=== PATIENT | male | born 1985 | race Caucasian/White ===

== ENCOUNTER 2016-11-26 17:07 | Inpatient (IN) | payer SELFPAY ==
[~2016-11-26] VITALS: Ht 182.9 cm; Wt 127.0 kg
[2016-11-26] MEDS ORDERED: MORPHINE SULFATE 4 MG/ML CPJ (NOT FOR IM USE) IV STA ×2 (20:13→21:55)
[2016-11-26] MEDS ORDERED: ONDANSETRON HCL 4MG/2ML VIAL IV STA ×2 (20:13→21:55)
[2016-11-26] MEDS ORDERED: SODIUM CHLORIDE 0.9% 1,000 ML IV ONE ×2 (20:13→21:55)
[2016-11-26 21:03] LABS: CHLORIDE 102 mEq/L (98-107)
[2016-11-26 21:08] LABS: CARBON DIOXIDE 24 mEq/L (21-32)
[2016-11-26 21:24] LABS: HEMATOCRIT. 42.4 % (42.0-52.0); HEMOGLOBIN. 14.1 g/dL (14.0-18.0); MEAN CORPUSCULAR HEMOGLOBIN 28.3 pg (28.0-32.0); MEAN CORPUSCULAR VOLUME 85.2 fL (80.0-94.0); PLATELET 261 x1000/uL (130-400); RED BLOOD CELL COUNT 4.98 mill/uL (4.7-6.1); RED CELL DISTRIBUTION WIDTH 13.2 % (11.6-14.6)
[2016-11-26 21:27] LABS: PROTHROMBIN TIME 10.7 sec
[2016-11-26 21:50] LABS: CLARITY URINE CLOUDY (CLEAR); COLOR URINE YELLOW (YELLOW); GLUCOSE URINE NEGATIVE (NEGATIVE); KETONES URINE NEGATIVE (NEGATIVE); LEUKOCYTE ESTERASE URINE NEGATIVE (NEGATIVE); NITRITE URINE NEGATIVE (NEGATIVE); OCCULT BLOOD URINE NEGATIVE (NEGATIVE); PROTEIN URINE TRACE (NEGATIVE); SPECIFIC GRAVITY URINE 1.035 (1.005-1.030); UROBILINOGEN URINE 0.2 E.U./dL (0.2-1.0)
[2016-11-26] MEDS ORDERED: KETOROLAC 30MG/ML VIAL IV STA (21:55)
[2016-11-26 22:15] LABS: PLATELET ESTIMATE NORMAL
[2016-11-27 00:03] LABS: BASOPHILS % 0.3 % (0.0-2.0); EOSINOPHILS % 1.5 % (0.0-5.0); HEMATOCRIT. 38.9 % (42.0-52.0); LYMPHOCYTES % 11.9 % (20.0-50.0); MEAN CORPUSCULAR HEMOGLOBIN 28.3 pg (28.0-32.0); MEAN CORPUSCULAR VOLUME 84.6 fL (80.0-94.0); MEAN PLATELET VOLUME 7.7 fl (7.4-10.4); MONOCYTES % 6.4 % (2.0-8.0); NEUTROPHILS % 79.9 % (40.0-76.0); PLATELET 252 x1000/uL (130-400); RED CELL DISTRIBUTION WIDTH 13.3 % (11.6-14.6)
[2016-11-27] MEDS ORDERED: PIPERACILLIN/TAZOBACTAM 3.375GM/50ML PREMIX IV ONE (01:00)
[2016-11-27] MEDS ORDERED: PIPERACILLIN/TAZ 3.375G PREMIX 50 ML IV NR (01:15)
[2016-11-27] MEDS ORDERED: SODIUM CHLORIDE 0.9% 1,000 ML IV SCH (01:41)
[2016-11-27] MEDS ORDERED: ONDANSETRON HCL 4MG/2ML VIAL IV PRN ×3 (01:45→23:00)
[2016-11-27] MEDS ORDERED: LEVOFLOXACIN 500MG PREMIX 100 ML IV SCH ×2 (01:45→17:00)
[2016-11-27] MEDS ORDERED: ACETAMINOPHEN 325MG TABLET PO PRN ×3 (01:45→23:00)
[2016-11-27] MEDS ORDERED: ENOXAPARIN 40MG/0.4ML SYR SUBCUT SCH (01:45)
[2016-11-27] MEDS ORDERED: LORAZEPAM 2MG/ML CPJ IV PRN ×2 (01:45→23:00)
[2016-11-27] MEDS ORDERED: HYDROMORPHONE HCL/PF 2MG/ML CPJ IV PRN ×3 (11:00→23:00)
[2016-11-27] MEDS ORDERED: DOCUSATE SODIUM 100MG CAPSULE PO PRN ×2 (11:30→23:00)
[2016-11-27] MEDS ORDERED: MAGNESIUM/ALUMINUM HYDROXIDE/SIMETHICONE 30ML UDC PO PRN ×2 (11:30→23:00)
[2016-11-27] MEDS ORDERED: DIPHENHYDRAMINE 50MG/ML VIAL IV PRN ×2 (11:30→23:00)
[2016-11-27] MEDS ORDERED: METRONIDAZOLE 500 MG PREMIX 100 ML IV SCH (11:30)
[2016-11-27] MEDS ORDERED: ACETAMINOPHEN 650MG SUPP PR PRN ×2 (11:30→23:00)
[2016-11-27] MEDS ORDERED: CLONIDINE 0.1MG TABLET PO PRN ×2 (11:30→23:00)
[2016-11-27] MEDS ORDERED: METRONIDAZOLE 500 MG PREMIX 100 ML IV NR (12:00)
[2016-11-27 15:30] VITALS: BP 120/82
[2016-11-27] MEDS: DEXT 5%/0.45% NACL 1000ML 1,000 ML IV SCH (17:26)
[2016-11-27] MEDS: METRONIDAZOLE 500 MG PREMIX 100 ML IV SCH (18:49)
[2016-11-27 20:00] VITALS: BP 116/75
[2016-11-27] MEDS: ENOXAPARIN 30MG/0.3ML SYR SUBCUT SCH (20:24)
[2016-11-28] VITALS: BP 113/69
[2016-11-28] MEDS: METRONIDAZOLE 500 MG PREMIX 100 ML IV SCH ×3 (01:44→20:39)
[2016-11-28 04:00] VITALS: BP 109/74
[2016-11-28 06:32] LABS: BASOPHILS % 0.4 % (0.0-2.0); HEMATOCRIT. 37.9 % (42.0-52.0); HEMOGLOBIN. 12.8 g/dL (14.0-18.0); LYMPHOCYTES % 19.8 % (20.0-50.0); MEAN CORPUSCULAR HEMOGLOBIN 28.7 pg (28.0-32.0); MEAN CORPUSCULAR VOLUME 85.1 fL (80.0-94.0); MEAN PLATELET VOLUME 8.6 fl (7.4-10.4); MONOCYTES % 9.2 % (2.0-8.0); NEUTROPHILS % 65.6 % (40.0-76.0); PLATELET 232 x1000/uL (130-400); RED BLOOD CELL COUNT 4.46 mill/uL (4.7-6.1); RED CELL DISTRIBUTION WIDTH 13.1 % (11.6-14.6)
[2016-11-28 07:53] LABS: HEPATITIS B SURFACE ANTIGEN NEGATIVE
[2016-11-28 07:55] VITALS: BP 109/68
[2016-11-28 08:21] LABS: HEPATITIS B CORE AB IGM NEGATIVE
[2016-11-28 08:23] LABS: HEPATITIS A AB IGM NEGATIVE (NEGATIVE)
[2016-11-28] MEDS: DEXT 5%/0.45% NACL 1000ML 1,000 ML IV SCH (08:38)
[2016-11-28] MEDS: ENOXAPARIN 30MG/0.3ML SYR SUBCUT SCH (08:38)
[2016-11-28 08:53] LABS: CARBON DIOXIDE 28 mEq/L (21-32); CHLORIDE 102 mEq/L (98-107)
[2016-11-28 12:00] VITALS: BP 107/69
[2016-11-28] MEDS ORDERED: POTASSIUM CHLORIDE INJ 40 MEQ in DEXT 5% WATER 500 ML IV SCH (13:00)
[2016-11-28 16:00] VITALS: BP 110/74
[2016-11-28 19:56] VITALS: BP 117/71
[2016-11-28] MEDS ORDERED: LEVOFLOXACIN 500MG PREMIX 100 ML IV SCH (21:00)
[2016-11-29] MEDS: DEXT 5%/0.45% NACL 1000ML 1,000 ML IV SCH ×2 (03:23→03:36)
[2016-11-29] MEDS: METRONIDAZOLE 500 MG PREMIX 100 ML IV SCH ×2 (03:36→13:25)
[2016-11-29 03:42] VITALS: BP 107/76
[2016-11-29 07:25] LABS: BASOPHILS % 0.3 % (0.0-2.0); EOSINOPHILS % 5.8 % (0.0-5.0); HEMATOCRIT. 39.4 % (42.0-52.0); HEMOGLOBIN. 13.5 g/dL (14.0-18.0); LYMPHOCYTES % 20.5 % (20.0-50.0); MEAN CORPUSCULAR HEMOGLOBIN 28.8 pg (28.0-32.0); MEAN CORPUSCULAR VOLUME 83.9 fL (80.0-94.0); MEAN PLATELET VOLUME 8.3 fl (7.4-10.4); MONOCYTES % 8.4 % (2.0-8.0); PLATELET 244 x1000/uL (130-400)
[2016-11-29 08:00] VITALS: BP 115/74
[2016-11-29] MEDS ORDERED: POTASSIUM CHLORIDE 20MEQ TABLET SR PO SCH (09:00)
[2016-11-29 12:00] VITALS: BP 114/78
[2016-11-29 16:00] VITALS: BP 115/74
[2016-11-29 18:14] VITALS: BP 115/74
[2016-11-29 20:00] VITALS: BP 117/68
== END 2016-11-29 20:40 | disposition home or self-care (01) ==
LOC: ER 19:59 → 8WST 11-27 01:14 → SUPCPDRO 11-27 01:40 → ENRESERV 11-27 14:19 → ER 11-27 15:30 → 8WST 11-27 15:46
PROVIDERS: ADMIT Internal Medicine Nephrology; ATTEND Internal Medicine Nephrology
DX: K82.0 Obstruction of gallbladder (principal); K76.0 Fatty (change of) liver, not elsewhere classified; Z82.49 Family history of ischemic heart disease and other diseases of the circulatory system; Z83.3 Family history of diabetes mellitus
CPT/HCPCS: 36415; 74176; 76700; 78227; 80048; 80053; 80076; 81001; 83605; 83690; 83735; 85025; 85610; 86705; 86709; 86803; 87040; 87340; 96361; 96365; 96372; 96376; 99285; A9537; J1170; J1650; J1885; J1956; J2270; J2405; J2543; J3480; J3490; J7030; J7060